=== PATIENT | male | born 1975 | race Caucasian/White ===

== ENCOUNTER 2024-08-15 16:00 | Outpatient (CLI) | payer OTHER | END 2024-08-15 16:01 | disposition home or self-care (01) | LOC: CSHSLEEP 16:00 | PROVIDERS: ATTEND Nurse Practitioner Primary Care | DX: G47.33 Obstructive sleep apnea (adult) (pediatric) (principal); Z99.11 Dependence on respirator [ventilator] status | CPT/HCPCS: 95811 ==